=== PATIENT | male | born 1975 | race Two or more races ===

== ENCOUNTER 2021-07-26 10:51 | Inpatient (IN) | payer MEDICAID, OTHER ==
[~2021-07-26] VITALS: Ht 185.4 cm; Wt 104.1 kg
[2021-07-26 11:27] LABS: Basophils # (auto) 0.1 10 ^3/uL (0-0.2); Basophils % (auto) 1.2 % (0.0-2.0); Eosinophils # (auto) 0.2 10 ^3/uL (0-0.8); Eosinophils % (auto) 2.2 % (0.0-7.0); Hematocrit 50.8 % (41.0-53.0); Hemoglobin 16.9 g/dL (13.5-17.5); Lymphocytes # (auto) 2.1 10 ^3/uL (0.4-5.4); Lymphocytes % (auto) 18.9 % (10.0-50.0); Mean Corpuscular Hemoglobin 30.9 pg (28.0-32.0); Mean Corpuscular Hgb Conc. 33.3 g/dL (32.0-36.0); Mean Corpuscular Volume 92.5 fL (80.0-100.0); Monocytes # (auto) 0.6 10 ^3/uL (0-1.3); Monocytes % (auto) 5.5 % (0.0-12.0); Neutrophils # (auto) 7.9 10 ^3/uL (1.6-8.6); Neutrophils % (auto) 72.2 % (37.0-80.0); Nucleated Red Blood Cells % 0.1 %; Red Blood Cells 5.49 10^6/uL (4.5-5.90); Red Cell Distribution Width 12.9 % (11.8-14.3); White Blood Cell 10.9 10^3/uL (4.4-10.8)
[2021-07-26 11:50] LABS: Albumin 3.5 g/dL (3.4-5.0); Calcium 8.6 mg/dL (8.5-10.1); Potassium 3.9 mmol/L (3.5-5.1)
[2021-07-26 11:53] LABS: BUN/Creatinine Ratio 7.1; Bilirubin, Total 0.8 mg/dL (0.2-1.0); Total Protein 7.7 g/dL (6.4-8.2)
[2021-07-26] MEDS ORDERED: ENOXAPARIN SOD 100 MG/1 ML SYRINGE SC ONE (13:00)
[2021-07-26] MEDS ORDERED: ACETAMINOPHEN 325 MG TAB PO PRN (15:15)
[2021-07-26] MEDS ORDERED: ONDANSETRON HCL 4 MG/2 ML VIAL IV PRN (15:15)
[2021-07-26] MEDS ORDERED: MORPHINE SULFATE INJECTION 2 MG/ML SYRG IV PRN (15:15)
[2021-07-26] MEDS ORDERED: MORPHINE SULFATE 4 MG/ML SYR/VIAL IV PRN (15:15)
[2021-07-26] MEDS ORDERED: NITROGLYCERIN 0.4 MG SL TAB SL PRN (15:15)
[2021-07-26 20:28] VITALS: BP 132/84
[2021-07-26 22:00] VITALS: BP 132/84
[2021-07-26] MEDS: HYDROcodone-ACET 5/325MG TAB PO PRN (22:47)
[2021-07-27] MEDS: ENOXAPARIN SOD 100 MG/1 ML SYRINGE SC SCH ×2 (01:00→14:00)
[2021-07-27 02:28] VITALS: BP 132/84
[2021-07-27 05:00] VITALS: BP 125/73
[2021-07-27 05:47] LABS: Basophils # (auto) 0.1 10 ^3/uL (0-0.2); Basophils % (auto) 0.8 % (0.0-2.0); Eosinophils # (auto) 0.3 10 ^3/uL (0-0.8); Eosinophils % (auto) 3.4 % (0.0-7.0); Hematocrit 47.3 % (41.0-53.0); Hemoglobin 16.1 g/dL (13.5-17.5); Lymphocytes # (auto) 3.4 10 ^3/uL (0.4-5.4); Mean Corpuscular Hemoglobin 31.7 pg (28.0-32.0); Mean Corpuscular Volume 93.2 fL (80.0-100.0); Monocytes # (auto) 0.7 10 ^3/uL (0-1.3); Monocytes % (auto) 7.5 % (0.0-12.0); Neutrophils # (auto) 4.8 10 ^3/uL (1.6-8.6); Neutrophils % (auto) 51.3 % (37.0-80.0); Nucleated Red Blood Cells % 0.1 %; Red Blood Cells 5.07 10^6/uL (4.5-5.90); Red Cell Distribution Width 13.2 % (11.8-14.3); White Blood Cell 9.3 10^3/uL (4.4-10.8)
[2021-07-27 06:27] LABS: Potassium 4.2 mmol/L (3.5-5.1)
[2021-07-27 06:38] LABS: Albumin 2.9 g/dL (3.4-5.0); BUN/Creatinine Ratio 9.2; Calcium 8.9 mg/dL (8.5-10.1)
[2021-07-27 06:41] LABS: Bilirubin, Total 1.1 mg/dL (0.2-1.0); Total Protein 6.9 g/dL (6.4-8.2)
[2021-07-27 09:00] VITALS: BP 128/70
[2021-07-27] MEDS: HYDROcodone-ACET 5/325MG TAB PO PRN ×2 (09:53→18:46)
[2021-07-27 13:00] VITALS: BP 116/76
[2021-07-27 16:32] VITALS: BP 138/67
[2021-07-27 22:00] VITALS: BP 98/62
[2021-07-28] MEDS: ENOXAPARIN SOD 100 MG/1 ML SYRINGE SC SCH ×2 (01:00→12:57)
[2021-07-28 05:00] VITALS: BP 101/66
[2021-07-28 08:00] VITALS: BP 116/69
[2021-07-28] MEDS: HYDROcodone-ACET 5/325MG TAB PO PRN (08:37)
[2021-07-28 09:00] VITALS: BP 116/69
[2021-07-28 13:00] VITALS: BP_SYST 117; BP_SYST 128; BP_DIAS 117; BP_DIAS 69; BP_DIAS 79
[2021-07-28] MEDS ORDERED: IOHEXOL 350 MG/ML 100ML IJ ONE (15:55)
[2021-07-28 17:00] VITALS: BP 128/76
[2021-07-28 22:00] VITALS: BP 118/76
[2021-07-29] VITALS (7 sets, daily range): BP systolic 104–127; BP diastolic 64–89
[2021-07-29 06:13] LABS: Calcium 9.1 mg/dL (8.5-10.1)
[2021-07-29 06:15] LABS: BUN/Creatinine Ratio 13.4
[2021-07-29 06:19] LABS: Basophils # (auto) 0.1 10 ^3/uL (0-0.2); Basophils % (auto) 0.9 % (0.0-2.0); Eosinophils # (auto) 0.2 10 ^3/uL (0-0.8); Eosinophils % (auto) 2.4 % (0.0-7.0); Hematocrit 48.4 % (41.0-53.0); Hemoglobin 16.2 g/dL (13.5-17.5); Lymphocytes # (auto) 2.5 10 ^3/uL (0.4-5.4); Lymphocytes % (auto) 30.8 % (10.0-50.0); Mean Corpuscular Hemoglobin 31.5 pg (28.0-32.0); Mean Corpuscular Hgb Conc. 33.5 g/dL (32.0-36.0); Mean Corpuscular Volume 94.1 fL (80.0-100.0); Monocytes # (auto) 0.7 10 ^3/uL (0-1.3); Monocytes % (auto) 8.5 % (0.0-12.0); Neutrophils # (auto) 4.7 10 ^3/uL (1.6-8.6); Neutrophils % (auto) 57.4 % (37.0-80.0); Nucleated Red Blood Cells % 0.2 %; Red Blood Cells 5.14 10^6/uL (4.5-5.90); Red Cell Distribution Width 13.3 % (11.8-14.3); White Blood Cell 8.1 10^3/uL (4.4-10.8)
[2021-07-29] MEDS: HYDROcodone-ACET 5/325MG TAB PO PRN (09:19)
[2021-07-29] MEDS: ENOXAPARIN SOD 100 MG/1 ML SYRINGE SC SCH ×2 (13:13→13:14)
[2021-07-29] MEDS ORDERED: ENOXAPARIN SOD 100 MG/1 ML SYRINGE SC SCH (17:30)
[2021-07-30] MEDS ORDERED: ENOXAPARIN SOD 100 MG/1 ML SYRINGE SC ONE (01:00)
[2021-07-30 05:00] VITALS: BP 110/60
[2021-07-30 08:00] VITALS: BP_SYST 113; BP_SYST 117; BP_DIAS 67; BP_DIAS 82
[2021-07-30] MEDS ORDERED: APIXABAN 5 MG TAB PO SCH (10:00)
[2021-07-30] MEDS: HYDROcodone-ACET 5/325MG TAB PO PRN (11:24)
[2021-07-30 12:00] VITALS: BP 117/82
[2021-07-30 16:00] VITALS: BP 113/83
[2021-07-30] MEDS ORDERED: APIXABAN 5 MG TAB PO ONE (17:45)
[2021-07-30 18:24] VITALS: BP 113/83
[2021-07-31] MEDS ORDERED: APIXABAN 5 MG TAB PO SCH (10:00)
== END 2021-07-30 22:45 | disposition home or self-care (01) | DRG 197 ==
LOC: ER 10:51 → OVERFLOW 15:10 → WEST WING 20:28
PROVIDERS: ADMIT Internal Medicine; ATTEND Internal Medicine
DX: I82.411 Acute embolism and thrombosis of right femoral vein (principal); I26.93 Single subsegmental thrombotic pulmonary embolism without acute cor pulmonale; I82.431 Acute embolism and thrombosis of right popliteal vein; D72.829 Elevated white blood cell count, unspecified; F12.90 Cannabis use, unspecified, uncomplicated; Z68.30 Body mass index [BMI] 30.0-30.9, adult; E66.01 Morbid (severe) obesity due to excess calories; Z20.822 Contact with and (suspected) exposure to COVID-19; Z79.01 Long term (current) use of anticoagulants; Z80.8 Family history of malignant neoplasm of other organs or systems
CPT/HCPCS: 36415; 71260; 74177; 80048; 80053; 85025; 85379; 87426; 93971; 96372; G0378